=== PATIENT | male | born 1965 ===

== ENCOUNTER → 2016-03-29 07:01 | Day surgery (SDC) | payer MEDICARE, MEDICAID ==
[~2016-03-29 07:01] MED LIST: Buffered Lidocaine 1% SYR 3ML* 3 ML/SYR SYRINGE INTRADERM ONE; Buffered Lidocaine 1% SYR 3ML* 3 ML/SYR SYRINGE ONE; Bupivacaine 0.5% SDV PF* 30 ML VIAL ONE; Dexamethasone IV* 4 MG/ML 1 ML (4 MG) ONE; Famotidine IV* 10 MG/ML 2 ML (20 mg) IV ONE; Famotidine IV* 10 MG/ML 2 ML (20 mg) ONE; KETAMINE HCL* 50 MG/ML 10 ML VIAL ONE; Lidocaine 2% PF* 10 ML AMP ONE; Metoprolol Tartrate IV* 1 MG/ML 5 ML VIAL ONE; Midazolam* 1 MG/ML 5 ML VIAL (5 MG) ONE; Morphine INJ* 2 MG/ML 1 ML CARPUJECT IV PRN; Ondansetron INJ* 2 MG/ML VIAL ONE; PROCHLORPERAZINE INJ 5 MG/ML 2 ML VIAL IV PRN; Propofol* 10 MG/ML 20 ML BTL IV PUSH ONE; ceFAZolin 2 GM PREMIX (*) 2 GM/50 ML BAG IVPB ONE; fentaNYL* 50 MCG/ML 2 ML VIAL (100 MCG VIAL) IV PRN; fentaNYL* 50 MCG/ML 2 ML VIAL (100 MCG VIAL) ONE; oxyCODONE/Acetamin 5/325 MG* TAB PO PRN
[2016-03-29 12:10] VITALS: BP 153/81
--- NOTE | 2016-03-30 01:09 | OP ---
DATE OF OPERATION: 03/29/16 - [facility] DATE OF : 63 SURGEON: Damion Rhoades MD COMPOSITION TEACHER: Antonette Lau PA-C ANESTHESIOLOGIST: Cheikh Mcmillan MD ANESTHESIA: General PRE-OP DIAGNOSIS: Chronic osteomyelitis, right lateral column mid foot. POST-OP DIAGNOSIS: Chronic osteomyelitis, right lateral column mid foot. OPERATIVE PROCEDURE: Removal of right fourth and fifth metatarsals, en bloc with secondary wound closure. DESCRIPTION OF PROCEDURE: The patient was taken to the operating room, where a Z- shape incision was made through the previous coronal split along the lateral ray. Using this S-shaped incision, we are able to expose the fourth and fifth metatarsal block, which was fused together. We transected this proximally, removing the bone on mass. Local cultures were sent. We then trimmed significant amount of skin edges after thorough irrigation. We are able to close primarily using 2-0 Biosyn sutures and interrupted nylon for the skin and a compression dressing, and plaster splint applied. [id number] #: [id number]
== END | disposition home or self-care (01) ==
LOC: OR 07:01
PROVIDERS: ATTEND Orthopaedic Surgery
DX: M86.671 Other chronic osteomyelitis, right ankle and foot (principal); E10.29 Type 1 diabetes mellitus with other diabetic kidney complication; E10.621 Type 1 diabetes mellitus with foot ulcer; N18.9 Chronic kidney disease, unspecified; Z94.0 Kidney transplant status; D84.9 Immunodeficiency, unspecified; I10 Essential (primary) hypertension; R06.09 Other forms of dyspnea; I25.10 Atherosclerotic heart disease of native coronary artery without angina pectoris; Z79.4 Long term (current) use of insulin
CPT/HCPCS: 87070; 87073; 87077; 87106; 87186; 87205; 88304; 88311; J0690; J1100; J2001; J2250; J2405; J2704; J3010; J3490